=== PATIENT | male | born 1985 | race Two or more races ===

== ENCOUNTER 2017-08-29 08:08 | Emergency (ER) | payer BC, OTHER ==
[2017-08-29 08:09] VITALS: BMI 25.1
[2017-08-29 08:13] VITALS: O2SAT 97
--- NOTE | 2017-08-29 08:31 | ED PDOC ---
HPI: Psych/Substance Abuse Time Seen by Provider: 08/29/17 08:15 Chief Complaint (Nursing): Substance Abuse Chief Complaint (Provider): substance abuse History Per: Patient History/Exam Limitations: no limitations Onset/Duration Of Symptoms: Hrs (today) Current Symptoms Are (Timing): Still Present Suicide/Self Injury Attempted (Context): None Involuntary Hold By: None Additional Complaint(s): David Coello is a 31 year old male, with a past medical history of schizophrenia, who was brought to the emergency department by EMS after patient was found swinging on swing in school property today. Patient denies drinking alcohol or using drugs. Patient has no active medical complaints. PMD: None provided. Past Medical History Reviewed: Historical Data, Nursing Documentation, Vital Signs Vital Signs: Last Vital Signs Temp 98.2 F 08/29/17 08:11 Pulse 94 H 08/29/17 08:11 Resp 20 08/29/17 08:11 BP 160/90 H 08/29/17 08:11 Pulse Ox 97 08/29/17 08:11 - Medical History PMH: Anxiety, Bipolar Disorder, Depression, Fractures (left elbow), Schizophrenia (schizo-affective d/o) Denies: Diabetes, Hepatitis, HIV, HTN, Seizures, Sexually Transmitted Disease - Surgical History Surgical History: No Surg Hx - Family History Family History: States: No Known Family Hx - Home Medications Home Medications: Ambulatory Orders Medication Instructions Recorded Calcium Carbonate/Vitamin D 1 tab PO DAILY tab 03/07/17 [Oscal-D 250 mg-125 Units Tab] Mirtazapine [Remeron] 30 mg PO HS tab 03/07/17 Ziprasidone [Geodon Cap] 40 mg PO DAILY #0 cap 03/07/17 Ziprasidone [Geodon Cap] 80 mg PO HS cap 03/07/17 buPROPion XL [Wellbutrin XL] 300 mg PO DAILY t24 03/07/17 carBAMazepine [Tegretol] 200 mg PO BID tab 03/07/17 carBAMazepine [Tegretol] 600 mg PO HS tab 03/07/17 - Allergies Allergies/Adverse Reactions: Allergies Allergy/AdvReac Type Severity Reaction Status Date / Time haloperidol [From Haldol] Allergy RASH Verified 03/02/17 14:11 haloperidol lactate Allergy RASH Verified 03/02/17 14:11 [From Haldol] risperidone Allergy RASH Verified 03/02/17 14:11 Review of Systems ROS Statement: Except As Marked, All Systems Reviewed And Found Negative Physical Exam - Reviewed Nursing Documentation Reviewed: Yes Vital Signs Reviewed: Yes - Physical Exam Appears: Positive for: Non-toxic, No Acute Distress Head Exam: Positive for: ATRAUMATIC, NORMOCEPHALIC Skin: Positive for: Normal Color, Warm, Dry Eye Exam: Positive for: Normal appearance Neck: Positive for: Painless ROM Cardiovascular/Chest: Positive for: Regular Rate, Rhythm. Negative for: Murmur Respiratory: Positive for: Normal Breath Sounds. Negative for: Respiratory Distress Gastrointestinal/Abdominal: Positive for: Normal Exam, Soft. Negative for: Tenderness Extremity: Positive for: Normal ROM (upper and lower extremities). Negative for : Deformity, Swelling Neurologic/Psych: Positive for: Alert, Oriented (x3). Negative for: Motor/ Sensory Deficits - ECG O2 Sat by Pulse Oximetry: 97 (RA) Pulse Ox Interpretation: Normal Medical Decision Making Medical Decision Making: Initial impression: psychiatric evaluation Initial Plan: --Alcohol serum --Drug screen, urine --Reevaluation Scribe Attestation: Documented by Lemuel Pink, acting as a scribe for Emely Malcolm MD Provider Scribe Attestation: All medical record entries made by the Scribe were at my direction and personally dictated by me. I have reviewed the chart and agree that the record accurately reflects my personal performance of the history, physical exam, medical decision making, and the department course for this patient. I have also personally directed, reviewed, and agree with the discharge instructions and disposition. Disposition - Clinical Impression Clinical Impression: Substance abuse - Disposition Referrals: [facility] [Outside] Disposition: Routine/Home Disposition Time: 11:08 Condition: STABLE Instructions: Drug Abuse Treatment Forms: [employer] (Nicaraguan)
[2017-08-29 10:06] LABS: BARBITURATES, UR NEGATIVE (NEGATIVE); PHENCYCLIDINE, UR NEGATIVE (NEGATIVE)
[2017-08-29 10:10] LABS: BENZODIAZEPINES, UR NEGATIVE (NEGATIVE); OPIATES, UR POSITIVE (NEGATIVE)
[2017-08-29 11:20] VITALS: BP 143/91; PULSE 88; RESP 16; TEMP 98.6
== END 2017-08-29 11:32 | disposition home or self-care (01) ==
LOC: H.ER 08:08
DX: F19.10 Other psychoactive substance abuse, uncomplicated (principal); Z86.59 Personal history of other mental and behavioral disorders; Z00.8 Encounter for other general examination
CPT/HCPCS: 99284; G0480

== ENCOUNTER 2018-04-03 18:24 | Inpatient (IN) | payer OTHER, BC ==
[2018-04-03 18:24] VITALS: BMI 25.1
--- NOTE | 2018-04-03 19:25 | ED PDOC ---
HPI: Psych/Substance Abuse Time Seen by Provider: 04/03/18 18:51 Chief Complaint (Nursing): Psychiatric Evaluation Chief Complaint (Provider): Psychiatric Evaluation History Per: Patient, Family Additional Complaint(s): Patient is a 32 year old male who presents with parents for psychiatric evaluation. Parents at bedside report patient has a history of anxiety, depression, bipolar disorder, and schizoaffective disorder. They noticed the patient at home has increasingly bizarre behavior, conversations with himself, and has started to punch and harm himself. Patient has recently threatened to kill his boss out of anger. In the past week, patient has expressed suicidal ideations but no specific plan. Patient has jumped off a joe in the past as a suicide attempt 10 years ago and was treated at [facility] at that time. Patient is compliant with his Zyprexa but ran out of the medication yesterday. He has recently been residing with his dad who states the patient has been abusing delsym and benzedrex. Other psychiatric symptoms: (-) A/V hallucinations, (+) suicidal ideation, (-) homicidal ideation. No physical complaints at present. PMD: [facility] Psychiatrist: Dr. Camacho in [place] Past Medical History Reviewed: Historical Data, Nursing Documentation, Vital Signs Vital Signs: Last Vital Signs Temp 98 F 04/03/18 18:45 Pulse 82 04/03/18 18:45 Resp 16 04/03/18 18:45 BP 152/83 H 04/03/18 18:45 Pulse Ox 98 04/03/18 18:45 - Medical History PMH: Anxiety, Bipolar Disorder, Depression, Fractures (left elbow), Post Traumatic Stress Disorder, Schizophrenia (schizo-affective d/o) - Surgical History Surgical History: No Surg Hx - Family History Family History: States: Unknown Family Hx - Living Arrangements Living Arrangements: With Family (father) - Home Medications Home Medications: Ambulatory Orders Medication Instructions Recorded RX: Calcium Carbonate/Vitamin D 1 tab PO DAILY tab 03/07/17 [Oscal-D 250 mg-125 Units Tab] RX: Mirtazapine [Remeron] 30 mg PO HS tab 03/07/17 RX: Ziprasidone [Geodon Cap] 40 mg PO DAILY #0 cap 03/07/17 RX: Ziprasidone [Geodon Cap] 80 mg PO HS cap 03/07/17 RX: buPROPion XL [Wellbutrin XL] 300 mg PO DAILY t24 03/07/17 RX: carBAMazepine [Tegretol] 200 mg PO BID tab 03/07/17 RX: carBAMazepine [Tegretol] 600 mg PO HS tab 03/07/17 RX: [place] Carbonate [[place] 600 mg PO BID #14 cap 09/11/17 Carbonate 300MG] RX: OLANZapine [Zyprexa] 10 mg PO DAILY #14 tab 09/11/17 RX: OLANZapine [Zyprexa] 20 mg PO HS #14 tab 09/11/17 RX: carBAMazepine [TEGretol-XR] 400 mg PO Q12 #30 ter 09/11/17 RX: chlorproMAZINE [Thorazine] 50 mg PO HS #14 tab 09/11/17 RX: cloNIDine [Catapres] 0.1 mg PO BID #60 tab 09/12/17 - Allergies Allergies/Adverse Reactions: Allergies Allergy/AdvReac Type Severity Reaction Status Date / Time haloperidol [From Haldol] Allergy RASH Verified 03/02/17 14:11 haloperidol lactate Allergy RASH Verified 03/02/17 14:11 [From Haldol] risperidone Allergy RASH Verified 03/02/17 14:11 Review of Systems ROS Statement: Except As Marked, All Systems Reviewed And Found Negative Psych: Positive for: Depression, Suicidal ideation (no homicidal ideation or hallucinations) Physical Exam - Reviewed Nursing Documentation Reviewed: Yes Vital Signs Reviewed: Yes - Physical Exam Comments: GENERAL APPEARANCE: Patient is awake, alert, oriented x 3, in no acute distress. Avoids eye contact with examiner. SKIN: Warm, dry; (-) cyanosis (+) scattered patches of dry skin dermatitis ENMT: Mucous membranes moist. Airway patent: (-) stridor. NECK: Supple, FROM HEART AND CARDIOVASCULAR: (-) irregularity CHEST AND RESPIRATORY: (-) rales, (-) rhonchi, (-) wheezes; breath sounds equal. Respirations even and nonlabored. ABDOMEN: Soft, (-) distention, (-) tenderness, (-) guarding. NEURO AND PSYCH: Mental status as above. Affect: agitated. (-) facial asymmetry. Gait: steady. Speech: clear. - Laboratory Results Result Diagrams: 04/03/18 20:59 04/03/18 20:59 - ECG O2 Sat by Pulse Oximetry: 98 (RA) Pulse Ox Interpretation: Normal Medical Decision Making Medical Decision Making: Time: 18:50 Impression: psychiatric evaluation Plan: --Alcohol serum --CMP --Urine Drug screen --Crisis evaluation --Cbc with differential --1:1 observation --Urinalysis 1999 Patient resting in ED stretcher accompanied by parents. Pending crisis evaluation. 2124 Per crisis evaluation, patient to be admitted for bipolar disorder per Dr Horton. 2154 CBC And CMP grossly unremarkable. Serum alcohol <10. Pending urine studies. On re-evaluation, patient sleeping comfortably. No acute distress noted. 2229 Patient pacing in exam room requesting food. Provided with sandwich. 2320 U/A with no evidence of UTI Utox: negative Patient is medically stable for psychiatric admission at this time. On re- evaluation, patient resting comfortably in no acute distress. Arrangements made for admission at this time. Vitals stable. Scribe Attestation: Documented by Franklin Shanks, acting as a scribe for uJ Womack Provider Scribe Attestation: All medical record entries made by the Scribe were at my direction and personally dictated by me. I have reviewed the chart and agree that the record accurately reflects my personal performance of the history, physical exam, medical decision making, and the department course for this patient. I have also personally directed, reviewed, and agree with the discharge instructions and disposition. Disposition - Clinical Impression Clinical Impression: Bipolar disorder - Patient ED Disposition Is Patient to be Admitted: Yes Discussed With : Rosamaria Horton Doctor Will See Patient In The: Hospital Counseled Patient/Family Regarding: Studies Performed, Diagnosis - Disposition Disposition Time: 23:20 Condition: FAIR - Pt Status Changed To: Hospital Disposition Of: Inpatient - Admit Certification Admit to Inpatient:: After my assessment, the patient will require hospitalization for at least two midnights. This is because of the severity of symptoms shown, intensity of services needed, and/or the medical risk in this patient being treated as an outpatient. - POA Present On Arrival: None Results - Lab Results Lab Results: 04/03/18 04/03/18 04/03/18 22:56 22:56 20:59 WBC 7.2 RBC 4.57 Hgb 13.7 Hct 41.2 MCV 90.2 MCH 30.1 MCHC 33.3 RDW 14.0 Plt Count 309 MPV 7.2 Neut % (Auto) 71.2 Lymph % (Auto) 19.9 L Day % (Auto) 7.1 Eos % (Auto) 1.3 Baso % (Auto) 0.5 Neut # (Auto) 5.1 Lymph # (Auto) 1.4 Day # (Auto) 0.5 Eos # (Auto) 0.1 Baso # (Auto) 0.0 Sodium Potassium Chloride Carbon Dioxide Anion Gap BUN Creatinine Est GFR ( Amer) Est GFR (Non-Af Amer) Random Glucose Calcium Total Bilirubin AST ALT Alkaline Phosphatase Total Protein Albumin Globulin Albumin/Globulin Ratio Urine Color Yellow Urine Clarity Clear Urine pH 7.0 Ur Specific [place] 1.014 Urine Protein Negative Urine Glucose (UA) Neg Urine Ketones Negative Urine Blood Negative Urine Nitrate Negative Urine Bilirubin Negative Urine Urobilinogen 0.2-1.0 Ur Leukocyte Esterase Neg Urine RBC (Auto) 1 Urine Microscopic WBC < 1 Urine Opiates Screen Negative Urine Methadone Screen Negative Ur Barbiturates Screen Negative Ur Phencyclidine Scrn Negative Ur Amphetamines Screen Negative U Benzodiazepines Scrn Negative U Oth Cocaine Metabols Negative U Cannabinoids Screen Negative Alcohol, Quantitative 04/03/18 20:59 WBC RBC Hgb Hct MCV MCH MCHC RDW Plt Count MPV Neut % (Auto) Lymph % (Auto) Day % (Auto) Eos % (Auto) Baso % (Auto) Neut # (Auto) Lymph # (Auto) Day # (Auto) Eos # (Auto) Baso # (Auto) Sodium 141 Potassium 3.7 Chloride 104 Carbon Dioxide 29 Anion Gap 12 BUN 17 Creatinine 0.8 Est GFR ( Amer) > 60 Est GFR (Non-Af Amer) > 60 Random Glucose 104 Calcium 8.7 Total Bilirubin 0.1 L AST 40 ALT 42 Alkaline Phosphatase 99 Total Protein 7.0 Albumin 4.2 Globulin 2.8 Albumin/Globulin Ratio 1.5 Urine Color Urine Clarity Urine pH Ur Specific [place] Urine Protein Urine Glucose (UA) Urine Ketones Urine Blood Urine Nitrate Urine Bilirubin Urine Urobilinogen Ur Leukocyte Esterase Urine RBC (Auto) Urine Microscopic WBC Urine Opiates Screen Urine Methadone Screen Ur Barbiturates Screen Ur Phencyclidine Scrn Ur Amphetamines Screen U Benzodiazepines Scrn U Oth Cocaine Metabols U Cannabinoids Screen Alcohol, Quantitative < 10
[2018-04-03 21:02] LABS: BASO % 0.5 % (0.0-2.0); EOS # 0.1 K/uL (0.0-0.7); EOS % 1.3 % (0.0-4.0); HEMOGLOBIN 13.7 g/dL (12.0-18.0); LYMPH # 1.4 K/uL (1.0-4.3); LYMPH % 19.9 % (20.0-40.0); MEAN CELL VOLUME 90.2 fl (80.0-94.0); MEAN CORPUSCULAR HEMOGLOBIN 30.1 pg (27.0-31.0); MEAN CORPUSCULAR HGB CONC 33.3 g/dL (33.0-37.0); MEAN PLATELET VOLUME 7.2 fl (7.2-11.7); MONO # 0.5 K/uL (0.0-0.8); MONO % 7.1 % (0.0-10.0); NEUT # 5.1 K/uL (1.8-7.0); NEUT % 71.2 % (50.0-75.0); NRBC % 0.1 % (0.0-0.0); RBC 4.57 Mil/uL (4.40-5.90); WHITE BLOOD COUNT 7.2 K/uL (4.8-10.8)
[2018-04-03 21:17] LABS: ALB/GLOB RATIO 1.5 (1.0-2.1); ALBUMIN 4.2 g/dL (3.5-5.0); ALT/SGPT 42 U/L (21-72); AST/SGOT 40 U/L (17-59); BLOOD UREA NITROGEN 17 mg/dl (9-20); CALCIUM 8.7 mg/dL (8.4-10.2); GFR NON-AFRICAN AMERICAN > 60
[2018-04-03 23:02] LABS: URINE BILIRUBIN NEGATIVE (NEGATIVE); URINE BLOOD NEGATIVE (NEGATIVE); URINE CLARITY CLEAR (Clear); URINE COLOR YELLOW (YELLOW); URINE GLUCOSE (UA) NEG (NEGATIVE); URINE LEUKOCYTE ESTERASE NEG Leu/uL (Negative); URINE PROTEIN NEGATIVE (NEGATIVE); URINE UROBILINOGEN 0.2-1.0 mg/dL (0.2-1.0)
[2018-04-03 23:19] LABS: OPIATES, UR NEGATIVE (NEGATIVE); PHENCYCLIDINE, UR NEGATIVE (NEGATIVE)
[2018-04-03 23:27] LABS: BARBITURATES, UR NEGATIVE (NEGATIVE); BENZODIAZEPINES, UR NEGATIVE (NEGATIVE)
[2018-04-03 23:43] VITALS: TEMP 97.8
[2018-04-03] MEDS ORDERED: DiphenhydrAMINE 50 mg/ml Inj IM PRN (23:58)
[2018-04-04 00:19] VITALS: O2SAT 100
--- NOTE | 2018-04-04 01:08 | PCM.BM ---
<Venkat Garza - Last Filed: 04/04/18 01:06> Treatment Plan Problems - Problems identified on initial assessmt High Risk: Injury Date Initiated: 04/04/18 Time Initiated: 01:06 Assessment reference: NA Status: Active Ineffective Impulse Control Date Initiated: 04/04/18 Time Initiated: 01:07 Assessment reference: NA Status: Active Altered Thought Process Date Initiated: 04/04/18 Time Initiated: 01:07 Assessment reference: NA Status: Active Medication Nonadherence Date Initiated: 04/04/18 Time Initiated: 01:08 Assessment reference: NA Status: Active Treatment assets and liabiliti Patient Assests: adapts well, cooperative, self-reliant, ADL independent, good support system, negotiates basic needs Patient Liabilities: substance abuse - Milieu Protocol Maintain good personal hygiene: every shift Encourage regular showers, every shift Remind patient to perform daily oral care, every shift Assist patient to perform ADL's Conduct patient checks and document Observation sheet: Q15 minutes Maintain personal safety: every shift Educate patient to report safety concerns to staff, every shift Monitor environment for contraband/sharps Medication safety: Monitor for expected outcome, potential side effects: every shift, Assess barriers to learning: every shift, Assess readiness for medication education: every shift <Rosamaria Horton - Last Filed: 04/04/18 11:08> - Diagnosis (1) Bipolar disorder Status: Acute Interventions: Medication management, Individual and group therapy, Psychoeducation 04/04/18 11:09 (2) Substance abuse Status: Acute Interventions: Individual and group therapy, Psychoeducation, Motivational Interviewing 04/04/18 11:09 <Kait Luo - Last Filed: 04/04/18 16:08> Family Contact Family involvement: Family/SO is involved Family contact: Family contacted unit to give information Family contact name: David Coello - father Family contacted how many times per week?: 1 Family contact comment: [phone] Discharge/Continuing Care - Education Needs Education Needs: Family Medication, Family Diagnosis/Disease Process, Family Coping Skills, Family Community resources, Family Activities of Daily Living, Family Health Practices/Safety, Family Personal Hygiene/Grooming, Family Aftercare Safety Plan, Patient Medication, Patient Diagnosis/Disease Process, Patient Coping Skills, Patient Community resources, Patient Activities of Daily Living, Patient Health Practices/Safety, Patient Personal Hygiene/Grooming, Patient Aftercare Safety Plan - Discharge Discharge Criteria: Tolerates medication w/o severe side effects, Free of Homicidal thoughts, Free of agitation, Normal sleep pattern, Ability to care for self, Reduction of target symptoms Discharge to:: Home, With Family - Additional Comments 04/04/18 16:03 Pt invited to participate in team meeting; however, pt refused. Reason for hospitalization reviewed and discussed per PES assessment. Pt's medications reviewed and discussed. Pt's stressors are unknown at the present time. Pt was not visible on the unit. Pt was isolative to his bedroom. Attending psychiatrist, Dr. Horton met with pt individually in pt's room. SW to meet with pt to complete initial assessment and discuss tx plan. SW will continue to fo llow case. - Treatment Team Participation Discussed with Family/SO: No Was Patient/Family/SO present at Treatment Team Meeting: No (Pt refused to attend team meeting)
[2018-04-04 08:29] LABS: BASO % 0.5 % (0.0-2.0); EOS # 0.2 K/uL (0.0-0.7); EOS % 2.4 % (0.0-4.0); HEMOGLOBIN 13.5 g/dL (12.0-18.0); LYMPH # 1.8 K/uL (1.0-4.3); LYMPH % 28.6 % (20.0-40.0); MEAN CORPUSCULAR HEMOGLOBIN 30.3 pg (27.0-31.0); MEAN CORPUSCULAR HGB CONC 32.6 g/dL (33.0-37.0); MEAN PLATELET VOLUME 7.4 fl (7.2-11.7); MONO # 0.6 K/uL (0.0-0.8); MONO % 9.2 % (0.0-10.0); NEUT # 3.7 K/uL (1.8-7.0); NEUT % 59.3 % (50.0-75.0); NRBC % 0.1 % (0.0-0.0); RBC 4.44 Mil/uL (4.40-5.90); RED CELL DISTRIBUTION WIDTH 14.1 % (11.5-14.5); WHITE BLOOD COUNT 6.3 K/uL (4.8-10.8)
[2018-04-04 08:54] LABS: ALB/GLOB RATIO 1.5 (1.0-2.1); ALBUMIN 3.7 g/dL (3.5-5.0); ALT/SGPT 36 U/L (21-72); AST/SGOT 35 U/L (17-59); BLOOD UREA NITROGEN 16 mg/dl (9-20); CALCIUM 8.6 mg/dL (8.4-10.2); GFR NON-AFRICAN AMERICAN > 60; HDL CHOLESTEROL 67 MG/DL (30-70)
[2018-04-04 09:05] LABS: LDL CHOLESTEROL 120 mg/dL (0-129)
[2018-04-04 09:09] LABS: T4 4.45 ug/dl (5.5-11.0)
--- NOTE | 2018-04-04 11:10 | PCM.PSYCH ---
Initial Psychiatric Evaluation - Initial Psychiatric Evaluation Type of Admission: Voluntary Legal Status: Capacity Chief Complaint (in patient's own words): Depression Patient's Reaction to Hospitalization: 32 yo male w/ h/o Bipolar Disorder, presents s/p ingesting excessive over the counter cough medicine. Patient is not cooperative with interview at this time, refused to come to treatment team and lies in bed with the covers over his head answering questions minimally. He reports that he has been non-compliant with medications for several days, but does not specify exactly how many days. He is currently minimizing symptoms to account underwriter, denying acute AH/VH/SI/HI. Additional history from the ER evaluation below: 32 y/o male that is self referred to the ED for suicidal ideations. Pt reports that he also drank an entire bottle of Delcum (cough medicine). Pt was unclear with this clinician whether substance intoxication was an suicide attempt. Pt presents as drowsy and with mumbled speech. Pt does report wanting psychiatric admission and states that he wants to kill himself. Pt states that he has been depressed but did not provide this clinical with the details of his depression. Pt states that he is constantly depressed and upset as of recent. Pt reports to being diagnosed with Bipolar Disorder and under the psychiatric care of Dr. Camacho of [place], [place]. Pt reports being prescribed Wellbutrin, Zyprexa and Carbamazepine. Collateral obtained by mother whom reports that pt was brought to the ED because he reported suicidal ideations and ingested a bottle of Delcum (cough medicine). Mother reports that pt has a history of suicide attempts and at the age of 22 y/o jumped off a bridge in such he required spinal surgery and shattered the heel in his foot requiring a metal plate. Mother also reports a second suicide attempt where pt cut his wrist with the intention of harming himself and was admitted to [facility]. Mother states that pt has multiple admissions at [facility], [facility] and [facility]. Mother reports that pt suffers from Bipolar Disorder and abuse [id number] medications. Mother states pt abuses various cold medicines, Isabela and nasal spray. Mother also reports pt has suffered from mental health issues since the age of 17 y/o. Mother reports that pt currently is employed with [employer] whom mandated he receives substance abuse and mental health treatment in the past. Mother reports that pt reports attend [facility] in the past for his substance abuse and is currently receiving psychiatric treatment in [place], [place] with Dr. Camacho. Mother believes pt is dual diagnosed and becomes manic and psychotic when intoxicated. Mother has safety concerns and believes pt would attempt suicide if discharged. Mother wants pt to be admitted for psychiatric reasons. Mother reports that pt has a history of suicide attempts and at the age of 22 y/o jumped off a bridge in such he required spinal surgery and shattered the heel in his foot requiring a metal plate. Mother also reports a second suicide attempt where pt cut his wrist with the intention of harming himself and was admitted to [facility]. PMHx: H/o Spinal surgery and shattered heel s/p previous suicide attempt PPHx: Current outpatient tx w/ Dr. Camacho, prescribed Carbamazepine 1000 mg PO HS, Zyprexa 10 mg PO HS, Wellbutrin XL 450 mg PO Daily ALL: Haldol, Risperdal SHx: Abuses over the counter cough medicine, smokes 1ppd, declined smoking cessation; last drank ETOH several days ago, patient would not quantify quantify FHx: Brother w/ schizoaffective disorder; alcohol use disorder on both sides of the family Current Medications: Active Medications Generic Name Dose Route Start Last Admin Trade Name Freq PRN Reason Stop Dose Admin Bupropion HCl 200 mg 04/04/18 11:06 Wellbutrin PO BID MARC Chlorpromazine 50 mg 04/04/18 10:45 Thorazine PO Q6 PRN Agitation Diphenhydramine HCl 50 mg 04/03/18 23:58 Benadryl IM Q6 PRN Extrapyramidal S/S Unable PO Diphenhydramine HCl 50 mg 04/03/18 23:58 Benadryl PO Q6 PRN Extrapyramidal Symptoms Diphenhydramine HCl 50 mg 04/04/18 00:09 04/04/18 00:27 Benadryl PO 50 mg HS PRN Administration Sleep Lorazepam 1 mg 04/03/18 23:58 Ativan IM Q8 PRN Anxiety/Agitation,Unable PO Lorazepam 1 mg 04/03/18 23:58 04/04/18 00:27 Ativan PO 1 mg Q8 PRN Administration Anxiety/Agitation Olanzapine 10 mg 04/04/18 22:00 Zyprexa PO HS MARC Past Psychiatric History - Past Psychiatric History Previous Treatment History: Inpatient Pertinent Medical Hx (Current Medical&Sleep Prob, Allergies): Allergies Allergy/AdvReac Type Severity Reaction Status Date / Time haloperidol [From Haldol] Allergy RASH Verified 03/02/17 14:11 haloperidol lactate Allergy RASH Verified 03/02/17 14:11 [From Haldol] risperidone Allergy RASH Verified 03/02/17 14:11 Calcium Carbonate/Vitamin D [Oscal-D 250 mg-125 Units Tab] 1 tab PO DAILY tab 03/07/17 Mirtazapine [Remeron] 30 mg PO HS tab 03/07/17 Ziprasidone [[place] Cap] 40 mg PO DAILY #0 cap 03/07/17 Ziprasidone [[place] Cap] 80 mg PO HS cap 03/07/17 buPROPion XL [Wellbutrin XL] 300 mg PO DAILY t24 03/07/17 carBAMazepine [Tegretol] 200 mg PO BID tab 03/07/17 carBAMazepine [Tegretol] 600 mg PO HS tab 03/07/17 [place] Carbonate [[place] Carbonate 300MG] 600 mg PO BID #14 cap 09/11/17 OLANZapine [Zyprexa] 10 mg PO DAILY #14 tab 09/11/17 OLANZapine [Zyprexa] 20 mg PO HS #14 tab 09/11/17 carBAMazepine [TEGretol-XR] 400 mg PO Q12 #30 ter 09/11/17 chlorproMAZINE [Thorazine] 50 mg PO HS #14 tab 09/11/17 cloNIDine [Catapres] 0.1 mg PO BID #60 tab 09/12/17 Review of Systems - Psychiatric Psychiatric: Abnormal Sleep Pattern, Anxiety, Behavioral Changes, Change in Appetite, Depression, Hopelessness, Irritability, Mood Swings, Suicidal Ideation Mental Status Examination - Personal Presentation Personal Presentation: Looks stated age - Affect Affect: Constricted - Motor Activity Motor Activity: Calm - Reliability in Providing Information Reliability in Providing Information: Other (Poor; not cooperative with interview) - Speech Speech: Organized - Mood Mood: Depressed, Anxious - Formal Thought Process Formal Thought Process: Other (r/o Poverty of thought; patient not cooperative with interview) - Hallucinations/Delusions Additional comments: No AH/VH/paranoia - Obsessions/Compulsions Obsessions: No Compulsions: No - Cognitive Functions Orientation: Person, Place, Situation, Time Sensorium: Alert Attention/Concentration: Attentive Judgement: Imparied, as evidence by: Poor judgement, Imparied, as evidence by: Lack of insight into illness Memory: Recent intact, as evidence by: Ability to recall events of the day - Risk Risk: Suicidal, Diminished functioning - Strength & Assets Inventory Strength & Assets Inventory: Family support DSM 5 DX - DSM 5 DSM 5 Diagnosis: Bipolar Disorder; Substance Use Disorder (abuses over the counter cough medicines) - Recommended/Plan of Treatment Treatment Recommendations and Plan of Treatment: Bipolar Disorder; Substance Use Disorder (abuses over the counter cough medicines) -Admit to psychiatry unit -Individual and group therapy -Psychoeducation -Medication management -Restart Wellbutrin, Carbamazepine and Zyprexa; patient not agreeable to taking different medications at this time -Obtain collateral history -Disposition planning Projected ELOS: 5-10 days Discharge Plan and Discharge Criteria: Discharge when patient is psychiatrically stable - Smoking Cessation Smoking Cessation Initiated: No Reason for not providing: Patient declined
--- NOTE | 2018-04-04 13:24 | CP.PCM.CON ---
History of Present Illness - History of Present Illness History of Present Illness: Reason for Consult: Per hospital protocol HPI: 32 year old male bipolar disorder admitted to psych for suicidal ideation/attempt. Patient is uncooperative with evaluation, keeping eyes closed during interview, answering questions minimally, intentionally "sleeping." Denies any HTN, DM, or any other medical history. ROS: Per HPI, all other systems reviewed and neg Past Patient History - Infectious Disease Hx of Infectious Diseases: None - Past Social History Smoking Status: Heavy Smoker > 10 Cigarettes Daily - CARDIAC Hx Hypertension: No - PULMONARY Hx Asthma: No Hx Chronic Obstructive Pulmonary Disease (COPD): No - NEUROLOGICAL Hx Seizures: No - HEENT Hx HEENT Problems: No - RENAL Hx Neurogenic Bladder: No - ENDOCRINE/METABOLIC Hx Adrenal Cancer: No - HEMATOLOGICAL/ONCOLOGICAL Hx Human Immunodeficiency Virus (HIV): No - INTEGUMENTARY Hx Dermatological Problems: No - MUSCULOSKELETAL/RHEUMATOLOGICAL Hx Fractures: Yes (left elbow) - GASTROINTESTINAL Hx Gastrointestinal Disorders: No - GENITOURINARY/GYNECOLOGICAL Hx Sexually Transmitted Disorders: No - PSYCHIATRIC Hx Bipolar Disorder: Yes Hx Depression: Yes Hx Schizophrenia: Yes Hx Substance Use: Yes (DELSYM AND BENZEDREX) - SURGICAL HISTORY Hx Surgeries: Yes Other/Comment: Patient jumped off a joe 2 years ago and broke back,elbow and right foot.Uncertain what type of surgery. - ANESTHESIA Hx Anesthesia: Yes Hx Anesthesia Reactions: No Hx Malignant Hyperthermia: No Meds Allergies/Adverse Reactions: Allergies Allergy/AdvReac Type Severity Reaction Status Date / Time haloperidol [From Haldol] Allergy RASH Verified 03/02/17 14:11 haloperidol lactate Allergy RASH Verified 03/02/17 14:11 [From Haldol] risperidone Allergy RASH Verified 03/02/17 14:11 - Medications Medications: Current Medications Bupropion HCl (Wellbutrin) 200 mg PO BID MARC Last Admin: 04/04/18 12:29 Dose: 200 mg Carbamazepine (Tegretol-Xr) 1,000 mg PO HS MARC Chlorpromazine (Thorazine) 50 mg PO Q6 PRN PRN Reason: Agitation Last Admin: 04/04/18 12:34 Dose: 50 mg Diphenhydramine HCl (Benadryl) 50 mg IM Q6 PRN PRN Reason: Extrapyramidal S/S Unable PO Diphenhydramine HCl (Benadryl) 50 mg PO Q6 PRN PRN Reason: Extrapyramidal Symptoms Diphenhydramine HCl (Benadryl) 50 mg PO HS PRN PRN Reason: Sleep Last Admin: 04/04/18 00:27 Dose: 50 mg Lorazepam (Ativan) 1 mg IM Q8 PRN PRN Reason: Anxiety/Agitation,Unable PO Lorazepam (Ativan) 1 mg PO Q8 PRN PRN Reason: Anxiety/Agitation Last Admin: 04/04/18 00:27 Dose: 1 mg Multivitamins/Minerals (Therapeutic-M Tab) 1 tab PO DAILY MARC Olanzapine (Zyprexa) 10 mg PO HS MARC Physical Exam - Constitutional Additional comments: Vitals Reviewed GEN: WDWN, alert, uncooperative HEENT: NCAT, PERRL, EOMI HEART: RRR, +S1S2, NO MRG LUNG: CTAB, NO WRR ABD: soft, NT, ND, No HSM, No masses EXT: normal pedal pulses NEURO: awake, alert SKIN: warm, dry PSYCH: uncooperative, flat affect Results - Vital Signs Recent Vital Signs: Last Vital Signs Temp 97.8 F 04/04/18 00:19 Pulse 74 04/04/18 00:19 Resp 18 04/04/18 00:19 BP 129/79 04/04/18 00:19 Pulse Ox 100 04/04/18 00:19 - Labs Result Diagrams: 04/04/18 08:15 04/04/18 08:15 Labs: Laboratory Results - last 24 hr 04/03/18 04/03/18 04/03/18 20:59 20:59 22:56 WBC 7.2 RBC 4.57 Hgb 13.7 Hct 41.2 MCV 90.2 MCH 30.1 MCHC 33.3 RDW 14.0 Plt Count 309 MPV 7.2 Neut % (Auto) 71.2 Lymph % (Auto) 19.9 L [place] % (Auto) 7.1 Eos % (Auto) 1.3 Baso % (Auto) 0.5 Neut # (Auto) 5.1 Lymph # (Auto) 1.4 [place] # (Auto) 0.5 Eos # (Auto) 0.1 Baso # (Auto) 0.0 Sodium 141 Potassium 3.7 Chloride 104 Carbon Dioxide 29 Anion Gap 12 BUN 17 Creatinine 0.8 Est GFR ( Amer) > 60 Est GFR (Non-Af Amer) > 60 Random Glucose 104 Hemoglobin A1c Calcium 8.7 Total Bilirubin 0.1 L AST 40 ALT 42 Alkaline Phosphatase 99 Total Protein 7.0 Albumin 4.2 Globulin 2.8 Albumin/Globulin Ratio 1.5 Triglycerides Cholesterol LDL Cholesterol Direct HDL Cholesterol Thyroxine (T4) TSH 3rd Generation Urine Color Urine Clarity Urine pH Ur Specific [place] Urine Protein Urine Glucose (UA) Urine Ketones Urine Blood Urine Nitrate Urine Bilirubin Urine Urobilinogen Ur Leukocyte Esterase Urine RBC (Auto) Urine Microscopic WBC Urine Opiates Screen Negative Urine Methadone Screen Negative Ur Barbiturates Screen Negative Ur Phencyclidine Scrn Negative Ur Amphetamines Screen Negative U Benzodiazepines Scrn Negative U Oth Cocaine Metabols Negative U Cannabinoids Screen Negative Alcohol, Quantitative < 10 04/03/18 04/04/18 04/04/18 22:56 08:15 08:15 WBC 6.3 RBC 4.44 Hgb 13.5 Hct 41.3 MCV 93.0 D MCH 30.3 MCHC 32.6 L RDW 14.1 Plt Count 289 MPV 7.4 Neut % (Auto) 59.3 Lymph % (Auto) 28.6 [place] % (Auto) 9.2 Eos % (Auto) 2.4 Baso % (Auto) 0.5 Neut # (Auto) 3.7 Lymph # (Auto) 1.8 [place] # (Auto) 0.6 Eos # (Auto) 0.2 Baso # (Auto) 0.0 Sodium 141 Potassium 3.8 Chloride 105 Carbon Dioxide 30 Anion Gap 10 BUN 16 Creatinine 0.8 Est GFR ( Amer) > 60 Est GFR (Non-Af Amer) > 60 Random Glucose 100 Hemoglobin A1c Calcium 8.6 Total Bilirubin 0.2 AST 35 ALT 36 Alkaline Phosphatase 86 Total Protein 6.2 L Albumin 3.7 Globulin 2.5 Albumin/Globulin Ratio 1.5 Triglycerides 71 Cholesterol 198 LDL Cholesterol Direct 120 HDL Cholesterol 67 Thyroxine (T4) 4.45 L TSH 3rd Generation 0.75 Urine Color Yellow Urine Clarity Clear Urine pH 7.0 Ur Specific [place] 1.014 Urine Protein Negative Urine Glucose (UA) Neg Urine Ketones Negative Urine Blood Negative Urine Nitrate Negative Urine Bilirubin Negative Urine Urobilinogen 0.2-1.0 Ur Leukocyte Esterase Neg Urine RBC (Auto) 1 Urine Microscopic WBC < 1 Urine Opiates Screen Urine Methadone Screen Ur Barbiturates Screen Ur Phencyclidine Scrn Ur Amphetamines Screen U Benzodiazepines Scrn U Oth Cocaine Metabols U Cannabinoids Screen Alcohol, Quantitative 04/04/18 08:15 WBC RBC Hgb Hct MCV MCH MCHC RDW Plt Count MPV Neut % (Auto) Lymph % (Auto) [place] % (Auto) Eos % (Auto) Baso % (Auto) Neut # (Auto) Lymph # (Auto) [place] # (Auto) Eos # (Auto) Baso # (Auto) Sodium Potassium Chloride Carbon Dioxide Anion Gap BUN Creatinine Est GFR ( Amer) Est GFR (Non-Af Amer) Random Glucose Hemoglobin A1c 5.4 Calcium Total Bilirubin AST ALT Alkaline Phosphatase Total Protein Albumin Globulin Albumin/Globulin Ratio Triglycerides Cholesterol LDL Cholesterol Direct HDL Cholesterol Thyroxine (T4) TSH 3rd Generation Urine Color Urine Clarity Urine pH Ur Specific [place] Urine Protein Urine Glucose (UA) Urine Ketones Urine Blood Urine Nitrate Urine Bilirubin Urine Urobilinogen Ur Leukocyte Esterase Urine RBC (Auto) Urine Microscopic WBC Urine Opiates Screen Urine Methadone Screen Ur Barbiturates Screen Ur Phencyclidine Scrn Ur Amphetamines Screen U Benzodiazepines Scrn U Oth Cocaine Metabols U Cannabinoids Screen Alcohol, Quantitative Assessment & Plan - Assessment and Plan (Free Text) Plan: 32 year old bipolar male, admitted for suicidal ideation. Bipolar SI - Psych management
[2018-04-05 06:15] VITALS: BP 128/80; PULSE 95; RESP 20
[2018-04-05] MEDS ORDERED: Multivitamin With Minerals Tab PO SCH (09:00)
--- NOTE | 2018-04-05 09:21 | PCM.PYCHPN ---
Psychiatric Progress Note - Psychiatric Progress Note Patient seen today, length of contact: Pt evaluated, case discussed w/ team, chart reviewed Patient Chief Complaint: Depression Problems Identified/Issues Discussed: Patient continues to report feeling depressed w/ self injurious ideations. Patient has a history of self harm and also suicide attempts. He has constricted affect and spends most of his day lying in bed, disinterested in engaging with the community or participating in groups. +Self isolating. + Sleep/appetite disturbances. +Hopelessness. Patient is requesting to be transferred to [facility] for further psychiatric treatment. Medication Change: No Medical Record Reviewed: Yes Consults ordered or reviewed: Medicine consult Mental Status Examination - Cognitive Function Orientation: Person, Place, Situation, Time Memory: Intact Attention: WNL Concentration: WNL Association: WNL Fund of Knowledge: [facility] Decription of patient's judgement and insights: Poor I/J re: substance abuse - Mood Mood: Depressed, Anxious - Affect Affect: Constricted - Formal Thought Process Formal Thought Process: Other (r/o Poverty of thought) Psychotic Thoughts and Behaviors: Denies AH/VH/paranoia - Suicidal Ideation Suicidal Ideation: Yes Plan: +Ideation of self harm (such as banging head) - Homicidal Ideation Homicidal Ideation: No Goal/Treatment Plan - Goal/Treatment Plan Need for Continued Stay: Remain at risks for inpatient hospitalization, Severe depression anxiety, Discharge may exacerbated symptoms Progress Toward Problem(s) and Goals/Treatment Plan: Bipolar Disorder; Substance Use Disorder (abuses over the counter cough medicines) -Individual and group therapy -Psychoeducation -Medication management -Continue Wellbutrin, Carbamazepine and Zyprexa -Patient requesting to be transferred to [facility] for further treatment and hospitalization - Smoking Cessation Smoking Cessation Initiated: No Reason for not providing: Patient declined
--- NOTE | 2018-04-05 13:21 | PCM.PYCHDC ---
Mental Status Examination - Mental Status Examination Orientation: Person, Place, Situation, Time Memory: Intact Mood: Depressed Affect: Constricted Speech: Appropriate Attention: WNL Concentration: WNL Association: WNL Fund of Knowledge: WNL Formal Thought Process: No Impairment Description of patient's judgement and insight: Poor I/J re: substance abuse Psychotic Thoughts and Behaviors: Denies AH/VH/paranoia Suicidal Ideation: Yes Current Homicidal Ideation?: No Discharge Summary - Discharge Note Reason for Hospitalization: 32 yo male w/ h/o Bipolar Disorder, presents s/p ingesting excessive over the counter cough medicine. Patient is not cooperative with interview at this time, refused to come to treatment team and lies in bed with the covers over his head answering questions minimally. He reports that he has been non-compliant with medications for several days, but does not specify exactly how many days. 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 Additional history from the ER evaluation below: 32 y/o male that is self referred to the ED for suicidal ideations. Pt reports that he also drank an entire bottle of Delcum (cough medicine). Pt was unclear with this clinician whether substance intoxication was an suicide attempt. Pt presents as drowsy and with mumbled speech. Pt does report wanting psychiatric admission and states that he wants to kill himself. Pt states that he has been depressed but did not provide this clinical with the details of his depression. Pt states that he is constantly depressed and upset as of recent. Pt reports to being diagnosed with Bipolar Disorder and under the psychiatric care of Dr. Camacho of [place], [place]. Pt reports being prescribed Wellbutrin, Zyprexa and Carbamazepine. Collateral obtained by mother whom reports that pt was brought to the ED because he reported suicidal ideations and ingested a bottle of Delcum (cough medicine). Mother reports that pt has a history of suicide attempts and at the age of 22 y/o jumped off a bridge in such he required spinal surgery and shattered the heel in his foot requiring a metal plate. Mother also reports a second suicide attempt where pt cut his wrist with the intention of harming himself and was admitted to [facility]. Mother states that pt has multiple admissions at [facility], [facility] and [facility]. Mother reports that pt suffers from Bipolar Disorder and abuse [id number] medications. Mother states pt abuses various cold medicines, Isabela and nasal spray. Mother also reports pt has suffered from mental health issues since the age of 17 y/o. Mother reports that pt currently is employed with [employer] whom mandated he receives substance abuse and mental health treatment in the past. Mother reports that pt reports attend [facility] in the past for his substance abuse and is currently receiving psychiatric treatment in [place], [place] with Dr. Camacho. Mother believes pt is dual diagnosed and becomes manic and psychotic when intoxicated. Mother has safety concerns and believes pt would attempt suicide if discharged. Mother wants pt to be admitted for psychiatric reasons. Mother reports that pt has a history of suicide attempts and at the age of 22 y/o jumped off a bridge in such he required spinal surgery and shattered the heel in his foot requiring a metal plate. Mother also reports a second suicide attempt where pt cut his wrist with the intention of harming himself and was admitted to [facility]. PMHx: H/o Spinal surgery and shattered heel s/p previous suicide attempt PPHx: Current outpatient tx w/ Dr. Camacho, prescribed Carbamazepine 1000 mg PO HS, Zyprexa 10 mg PO HS, Wellbutrin XL 450 mg PO Daily ALL: Haldol, Risperdal SHx: Abuses over the counter cough medicine, smokes 1ppd, declined smoking cessation; last drank ETOH several days ago, patient would not quantify quantify FHx: Brother w/ schizoaffective disorder; alcohol use disorder on both sides of the family Laboratory Data: Abnormal Lab Results 04/04/18 08:15 RPR Nonreactive Consultations:: List each consultation separately and include: 1. Reason for request. 2. Findings. 3. Follow-up Consultations: Medicine consult Summary of Hospital Course include:: 1. Description of specific treatment plan utilized for patients during their course of treatmen. 2. Summarize the time- course for resolution of acute symptoms and/or regressed behaviors. 3. Describe issues identified and worked on during hospitalization. 4. Describe medication utilized. 5. Describe medical problems identified and treated. 6. Reassessment of suicide risk Summary of Hospital Course: Patient was admitted to the psychiatry unit. He was restarted on Wellbutrin, Tegretol and Zyprexa. He continues to be depressed w/ self injurious ideation and will be transferred per his request to [facility] for continued treatment. - Diagnosis (1) Bipolar disorder Current Visit: Yes Status: Acute (2) Substance abuse Current Visit: No Status: Acute - Final Diagnosis (DSM 5) Condition upon Discharge: SERIOUS DSM 5: Bipolar Disorder; Substance Use Disorder (abuses over the counter cough medicines) Disposition: Trans to Other Acute Care [facility] Follow-up Treatment Plan: Bipolar Disorder; Substance Use Disorder (abuses over the counter cough medicines) -Individual and group therapy -Psychoeducation -Medication management -Continue Wellbutrin, Carbamazepine and Zyprexa -Transfer to [facility] for further treatment and hospitalization - Smoking Cessation Smoking Cessation Medication prescribed: No Reason for not providing: Patient declined - Antipsychotic Medications Pt discharged on 2 or more routine antipsychotic medications: No
== END 2018-04-05 16:15 | disposition short-term general hospital (02) | DRG 885 ==
LOC: H.ER 18:24 → H.ERHOLD 23:25 → H.STEP 23:54
PROVIDERS: ADMIT Psychiatry & Neurology Psychiatry; ATTEND Psychiatry & Neurology Psychiatry
PROC: GZHZZZZ Group Psychotherapy (ICD-10-PCS; principal; 2018-04-03)
PROC: GZ58ZZZ Individual Psychotherapy, Cognitive-Behavioral (ICD-10-PCS; 2018-04-03)
DX: F31.9 Bipolar disorder, unspecified (principal); R45.851 Suicidal ideations; F19.10 Other psychoactive substance abuse, uncomplicated; F43.10 Post-traumatic stress disorder, unspecified; Z91.5 Personal history of self-harm; Z91.14 Patient's other noncompliance with medication regimen; F17.210 Nicotine dependence, cigarettes, uncomplicated; F41.9 Anxiety disorder, unspecified